=== PATIENT | male | born 1990 | race Two or more races ===

== ENCOUNTER 2017-12-27 03:52 | Emergency (ER) | payer SELFPAY ==
[~2017-12-27] VITALS: Ht 160 cm; Wt 54.4 kg
[2017-12-27 04:00] VITALS: BP 101/68
--- NOTE | 2017-12-27 05:15 | Emergency Room Report ---
History of Present Illness General Chief Complaint: Alcohol Intoxication Source: EMS Present Illness HPI Is a 27-year-old male who is brought in by EMS for altered mental status from intoxication. 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 He was bothering the customers. No trauma. History is limited because of his intoxicati Allergies: Coded Allergies: No Known Allergies (Unverified , 12/27/17) Patient History Past Medical History: see triage record, old chart reviewed Past Surgical History: unable to obtain Pertinent Family History: unable to obtain Social History: Reports: alcohol use Immunizations: other Reviewed Nursing Documentation: PMH: Agreed, PSxH: Agreed Nursing Documentation-PMH Past Medical History: No Stated History Review of Systems All Other Systems: limited - Secondary to intoxication Physical Exam Vital Signs Date Time Temp Pulse Resp B/P (MAP) Pulse Ox O2 Delivery O2 Flow Rate FiO2 12/27/17 03:51 98.2 79 18 101/68 98 Room Air vitals normal Sp02 EP Interpretation: reviewed, normal General Appearance: well appearing, no apparent distress, other - Very intoxicated Head: normocephalic, atraumatic Eyes: bilateral eye PERRL, bilateral eye EOMI ENT: hearing grossly normal, normal pharynx Neck: full range of motion, supple, no meningismus Respiratory: chest non-tender, lungs clear, normal breath sounds Cardiovascular #1: regular rate, rhythm, no murmur Gastrointestinal: normal bowel sounds, non tender, no mass, no organomegaly, no bruit, non-distended Musculoskeletal: back normal, normal range of motion Neurologic: grossly normal - Moving all extremities Psychiatric: mood/affect normal Skin: warm/dry Medical Decision Making Diagnostic Impression: Primary Impression: Acute alcoholic intoxication Qualified Codes: F10.929 - Alcohol use, unspecified with intoxication, unspecified ER Course Patient with alcohol intoxication. No trauma to warrant CT scan or x-ray. He has been sleeping for couple hours now. More awake but still intoxicated. We' ll observe until clinical sobriety. We'll discharge home afterward. Last Vital Signs Date Time Temp Pulse Resp B/P (MAP) Pulse Ox O2 Delivery O2 Flow Rate FiO2 12/27/17 03:51 98.2 79 18 101/68 98 Room Air Status: improved Disposition: HOME, SELF-CARE Condition: Stable Referrals: NOT CHOSEN IPA/MD,REFERRING (PCP) Patient Instructions: Alcohol Intoxication, [id number] Additional Instructions: stop abusing alcohol. followup your Dr. in 7 days. Return if worse. BRITNI HERNANDEZ M.D. Dec 27, 2017 05:15
[2017-12-27] MEDS ORDERED: Ammonia Inhalant 0.33mL 1 Amp INH ONE (06:12)
[2017-12-27 06:15] VITALS: BP 98/60
[2017-12-27 07:18] VITALS: BP 87/44
[2017-12-27 10:02] VITALS: BP 101/57
[2017-12-27 10:03] VITALS: BP 101/57
== END 2017-12-27 10:04 | disposition home or self-care (01) ==
LOC: EDBD 03:52 → EMR 04:19
DX: F10.129 Alcohol abuse with intoxication, unspecified (principal); R41.82 Altered mental status, unspecified
CPT/HCPCS: 99284